=== PATIENT | female | born 1975 | race Caucasian/White ===

== ENCOUNTER 2017-09-30 16:04 | Emergency (ER) | payer OTHER ==
[2017-09-30 16:04] VITALS: BMI 32.0
[2017-09-30 16:14] VITALS: TEMP 98.2
[2017-09-30 16:39] LABS: HCG,QUALITATIVE URINE POSITIVE (NEGATIVE)
[2017-09-30 16:44] LABS: SQUAMOUS EPITHIAL 11 /hpf (0-5); URINE BILIRUBIN NEGATIVE (NEGATIVE); URINE BLOOD 3+ (NEGATIVE); URINE CLARITY Hazy (Clear); URINE COLOR Red (YELLOW); URINE GLUCOSE (UA) 1+ mg/dL (Normal); URINE LEUKOCYTE ESTERASE NEG Leu/uL (Negative); URINE PROTEIN NEGATIVE (NEGATIVE); URINE UROBILINOGEN NORMAL mg/dL (0.2-1.0)
[2017-09-30 17:17] LABS: BASO # 0.1 K/uL (0.0-0.2); BASO % 0.7 % (0.0-2.0); EOS # 0.1 K/uL (0.0-0.7); EOS % 0.4 % (0.0-4.0); HEMOGLOBIN 12.6 g/dL (11.0-16.0); LYMPH # 2.5 K/uL (1.0-4.3); LYMPH % 20.2 % (20.0-40.0); MEAN CELL VOLUME 86.5 fL (81.0-99.0); MEAN CORPUSCULAR HEMOGLOBIN 29.4 pg (27.0-31.0); MEAN PLATELET VOLUME 7.1 fL (7.2-11.7); MONO # 0.9 K/uL (0.0-0.8); MONO % 7.1 % (0.0-10.0); NEUT # 8.9 K/uL (1.8-7.0); NEUT % 71.6 % (50.0-75.0); RBC 4.28 Mil/uL (3.80-5.20); RED CELL DISTRIBUTION WIDTH 12.9 % (11.5-14.5); WHITE BLOOD COUNT 12.5 K/uL (4.8-10.8)
[2017-09-30 17:29] LABS: ALB/GLOB RATIO 1.2 (1.0-2.1); ALT/SGPT 9 U/L (9-52); AST/SGOT 14 U/L (14-36); BLOOD UREA NITROGEN 9 mg/dL (7-17); CALCIUM 9.1 mg/dl (8.6-10.4); GFR AFRICAN-AMERICAN > 60; GFR NON-AFRICAN AMERICAN > 60
[2017-09-30] MEDS ORDERED: Sodium Chloride 0.9% 1,000 ML IV ONE (17:39)
--- NOTE | 2017-09-30 18:34 | C.PDOC ---
History Of Present Illness Patient presents to ED c/o one episode of vaginal spotting today, associated with pelvic cramping. Patient is , currently 7 weeks . She denies vomiting, diarrhea, fever, dysuria. Time Seen by Provider: 09/30/17 16:36 Chief Complaint (Nursing): Female Genitourinary History Per: Patient History/Exam Limitations: no limitations Onset/Duration Of Symptoms: Hrs Current Symptoms Are (Timing): Better Severity: Mild Quality Of Discomfort: Cramping Abnormal Vaginal Bleeding: Yes Past Medical History Reviewed: Historical Data, Nursing Documentation, Vital Signs Vital Signs: Last Vital Signs Temp 98.2 F 09/30/17 16:10 Pulse 100 H 09/30/17 16:10 Resp 18 09/30/17 16:10 BP 156/91 H 09/30/17 16:10 Pulse Ox 100 09/30/17 19:01 - Medical History PMH: Asthma, Kidney Stones Surgical History: Cholecystectomy - [facility] Procedures ASPIRAT CURET-POST DELIV (12/02/14) MONITORING NOS (09/18/13) LOW CERVICAL (09/23/13) Family History: States: No Known Family Hx - Social History Hx Tobacco Use: No Hx Alcohol Use: No Hx Substance Use: No - Immunization History Hx Tetanus Toxoid Vaccination: No Hx Influenza Vaccination: No Hx Pneumococcal Vaccination: No Review Of Systems Except As Marked, All Systems Reviewed And Found Negative. Respiratory: Negative for: Cough, Shortness of Breath Gastrointestinal: Negative for: Nausea, Vomiting, Abdominal Pain Genitourinary: Positive for: Vaginal Bleeding, Pelvic Pain. Negative for: Dysuria Physical Exam - Physical Exam Appears: Well, Non-toxic, No Acute Distress Oral Mucosa: Moist Cardiovascular: Rhythm Regular Respiratory: Normal Breath Sounds, No Rales, No Rhonchi, No Wheezing Gastrointestinal/Abdominal: No Bowel Sounds, No Soft, Tenderness (mild suprapubic TTP), No Guarding, No Rebound Neurological/Psych: Oriented x3 ED Course And Treatment - Laboratory Results Result Diagrams: 09/30/17 17:12 09/30/17 17:12 O2 Sat by Pulse Oximetry: 100 (RA) Pulse Ox Interpretation: Normal - CT Scan/US transvaginal US Other Rad Studies (CT/US): Read By Radiologist, Radiology Report Reviewed CT/US Interpretation: Accession No. : [id number]. Patient Name / ID : ADDISON NEWTON / [id number]. Exam Date : 09/30/2017 16:54:26 ( Approved ). Study Comment : Sex / Age : F / 41Y. Creator : Davey Barrios MD. Dictator : Davey Barrios MD. [employer] Driver : Supervisor Records Change : Davey Barrios MD. Approver2 : Report Date : 09/30/2017 18:57:44. My Comment : . PROCEDURE: OB Pelvic Ultrasound. HISTORY: , bleeding. COMPARISON: None available. FINDINGS: UTERUS: There is an intrauterine gestational sac. It is irregularly shaped and extends from the endometrial cavity to the cervix. It measures roughly 22 mm in mean sac diameter, equivalent to 6 weeks 5 days. A pole is visualized measuring 6 mm, equivalent to 6 weeks 3 days. Probable cardiac activity is identified measuring 83 beats per minute. This is below normal range. There is a 2nd fluid collection which is also irregularly-shaped and elongated. This measures approximately 25 mm. If this represents a gestational sac this is equivalent to 7 weeks 2 days. However, no pole is identified and this may represent a subchorionic hemorrhage. Please note that there is no yolk sac identified within either structure. Uterus measures 13.0 x 5.5 x 6.4 cm. Fundal uterine subserosal fibroid, 1.5 x 1.5 x 1.9 cm. Second mid 2 upper uterine intramural fibroid, 1.3 x 1.3 x 1.7 cm. CERVIX: Cervix measures approximately 3.1 cm. RIGHT OVARY: Measures 2.2 x 1.5 x 1.6 cm. No mass. Normal flow. LEFT OVARY: Measures 3.3 x 3.0 x 2.6 cm. No mass. Normal flow. Simple cyst, 1.9 x 2.3 x 1.9 cm. FREE FLUID: None. OTHER FINDINGS: None. IMPRESSION: Live intrauterine gestation with abnormal gestational sac, pole with low heart rate, no visualized yolk sac and possible subchorionic hemorrhage. The gestational sac is extending from the endometrial cavity to the cervix. This may represent a miscarriage in progress. A 2nd cystic structure is identified without internal echoes/ pole and likely represents subchorionic hemorrhage. heart rate 83 beats per minute. Uterine fibroids. Progress Note: Blood work, UA, pelvic US ordered and reviewed. Patient given IV NS bolus. Disposition Counseled Patient/Family Regarding: Studies Performed, Diagnosis, Need For Followup - Disposition Referrals: [facility] [Outside] Disposition: HOME/ ROUTINE Disposition Time: 19:10 Condition: STABLE Additional Instructions: FOLLOW UP WITH YOUR CONCRETE BATCHER IN 1-2 DAYS RETURN TO ER IF SYMPTOMS WORSEN Instructions: Threatened Miscarriage (DC) Forms: [facility] (Citizen Of [place]) Print Language: NAURUAN - POA Present On Arrival: None - Clinical Impression Clinical Impression: Threatened miscarriage in early
--- NOTE | 2017-09-30 18:59 | US ---
PROCEDURE: OB Pelvic Ultrasound HISTORY: , bleeding COMPARISON: None available. FINDINGS: UTERUS: There is an intrauterine gestational sac. It is irregularly shaped and extends from the endometrial cavity to the cervix. It measures roughly 22 mm in mean sac diameter, equivalent to 6 weeks 5 days. A pole is visualized measuring 6 mm, equivalent to 6 weeks 3 days. Probable cardiac activity is identified measuring 83 beats per minute. This is below normal range. There is a 2nd fluid collection which is also irregularly-shaped and elongated. This measures approximately 25 mm. If this represents a gestational sac this is equivalent to 7 weeks 2 days. However, no pole is identified and this may represent a subchorionic hemorrhage. Please note that there is no yolk sac identified within either structure. Uterus measures 13.0 x 5.5 x 6.4 cm. Fundal uterine subserosal fibroid, 1.5 x 1.5 x 1.9 cm. Second mid 2 upper uterine intramural fibroid, 1.3 x 1.3 x 1.7 cm. CERVIX: Cervix measures approximately 3.1 cm. RIGHT OVARY: Measures 2.2 x 1.5 x 1.6 cm. No mass. Normal flow. LEFT OVARY: Measures 3.3 x 3.0 x 2.6 cm. No mass. Normal flow. Simple cyst, 1.9 x 2.3 x 1.9 cm. FREE FLUID: None. OTHER FINDINGS: None. IMPRESSION: Live intrauterine gestation with abnormal gestational sac, pole with low heart rate, no visualized yolk sac and possible subchorionic hemorrhage. The gestational sac is extending from the endometrial cavity to the cervix. This may represent a miscarriage in progress. A 2nd cystic structure is identified without internal echoes/ pole and likely represents subchorionic hemorrhage. heart rate 83 beats per minute. Uterine fibroids.
[2017-09-30 19:15] VITALS: BP 162/84; PULSE 91; RESP 16; O2SAT 98
== END 2017-09-30 19:16 | disposition home or self-care (01) ==
LOC: C.ER 16:04
DX: O20.0 Threatened abortion (principal); Z3A.01 Less than 8 weeks gestation of pregnancy
CPT/HCPCS: 76805; 76817; 80053; 81001; 84702; 84703; 85025; 86850; 86900; 96360; 99285; J7040